=== PATIENT | female | born 1940 | race Caucasian/White ===

== ENCOUNTER 2019-02-02 13:04 | Outpatient (CLI) | payer MEDICARE, OTHER ==
--- NOTE | 2019-02-02 13:58 | MRI ---
MRI BRAIN WITHOUT CONTRAST: HISTORY: Memory loss FINDINGS: No restricted diffusion is seen. There are multiple foci of T2 prolongation in the periventricular wh ite matter, consistent with chronic small vessel ischemic disease. Cortical atrophy is present. The ventricular size is appropriate and the basilar cisterns are patent. No evidence of acute infarct, hemorrhage, midline shift or abnormal extra-axial fluid collections is seen. The visualized paranasal sinuses and mastoid air cells are well-aerated. IMPRESSION: 1 No evidence of acute intracranial process. 2. Cortical atrophy. 3. Chronic small vessel ischemic disease.
== END 2019-02-02 13:05 | disposition home or self-care (01) ==
LOC: SCSMRI 13:04
PROVIDERS: ATTEND Family Medicine
DX: G25.2 Other specified forms of tremor (principal); G47.63 Sleep related bruxism; G47.00 Insomnia, unspecified; R41.3 Other amnesia; G31.9 Degenerative disease of nervous system, unspecified; I67.82 Cerebral ischemia
CPT/HCPCS: 70551

== ENCOUNTER 2020-12-23 19:30 | Outpatient (CLI) | payer MEDICARE, OTHER | END 2020-12-23 19:31 | disposition home or self-care (01) | LOC: SLEEPLAB 19:30 | PROVIDERS: ATTEND Psychiatry & Neurology Neurology | DX: G47.33 Obstructive sleep apnea (adult) (pediatric) (principal); G47.10 Hypersomnia, unspecified; G47.00 Insomnia, unspecified | CPT/HCPCS: 95810 ==